=== PATIENT | female | born 1950 | race Asian ===

== ENCOUNTER 2019-01-18 06:06 | Observation (INO) | payer BC ==
[2019-01-08 13:49] VITALS: BMI 25.9
[~2019-01-18] VITALS: Ht 161.3 cm; Wt 67.1 kg
[2019-01-18] VITALS (21 sets, daily range): BP systolic 119–178; BP diastolic 59–87; PULSE 63–75; RESP 12–23; Ht 161.3 cm; Wt 67.1 kg
[~2019-01-18 06:06] MED LIST: ACETAMINOPHEN 500 MG TAB PO ONE; ATOR20TA38 PO; CEFAZOLIN 2 GM/50 ML (PMX) 50 ML IVPB ONE; DEXAMETHASONE 4 MG/ML 1 ML INJ IV ONE; LACTATED RINGER'S 1,000 ML IV SCH; LOSA100T15 PO
[2019-01-18] MEDS ORDERED: ACETAMINOPHEN 1000MG/100ML IV 100 ML IVPB ONE (06:57)
[2019-01-18] MEDS ORDERED: BACITRACIN 50000 UNITS INJ ONE (07:01)
[2019-01-18] MEDS ORDERED: POLYMYXIN B 500000 UNIT INJ ONE (07:07)
--- NOTE | 2019-01-18 07:08 | PREAC ---
Date/Time of Note Date/Time of Note DATE: 01/18/19 TIME: 07:06 Anesthesia Eval and Record Evaluation Time Pre-Procedure Interview DATE: 01/18/19 TIME: 07:06 Age 68 Sex female NPO: 8 hrs Preoperative diagnosis Right knee degenerative joint disease Planned procedure Right total knee replacement Past Medical History Past Medical History: Includes Cardio: HTN, Dyslipidemia Surgery & Anesthesia Issues No known issue Meds Anticoagulation: No Beta Charo within 24 hr: No Reason Beta Charo not given: Pt. not on B-Charo Reported Medications Gabapentin* (Gabapentin*) 100 Mg Capsule, 100 MG PO TID, #90 CAP 01/18/19 Meloxicam* (Meloxicam*) 7.5 Mg Tablet, 7.5 MG PO BID, #30 TAB 01/18/19 Hydrochlorothiazide* (Hydrochlorothiazide*) 25 Mg Tab, 25 MG PO DAILY, #30 TAB 01/18/19 Atorvastatin* (Atorvastatin*) 40 Mg Tablet, 40 MG PO QHS, #30 TAB 01/18/19 Losartan Potassium* (Losartan Potassium*) 100 Mg Tablet, 100 MG PO DAILY, TAB 01/18/19 Discontinued Reported Medications Atorvastatin Calcium* (Atorvastatin Calcium*) 20 Mg Tablet, 20 MG PO HS 01/11/13 Losartan Potassium* (Losartan Potassium*) 100 Mg Tablet, 100 MG PO HS 01/11/13 Current Medications Lactated Ringer's 1,000 ml @ 125 mls/hr Q8H IV ; Start 01/18/19 at 06:00; Stop 01/18/19 at 13:59 Acetaminophen 100 ml @ 400 mls/hr ONCE ONCE IVPB ; Start 01/18/19 at 06:57; Stop 01/18/19 at 07:11 Meds reviewed: Yes Allergies Uncoded Allergies: cassava (Allergy, Severe, hives,itching, 01/08/19) CHERRIES/EGG PLANTS/KUMQUAT (Allergy, Unknown, SEVER HIVES, 02/26/15) Allergies Reviewed: Yes Labs/Studies Labs Reviewed: Reviewed by anesthesiologist Blood Bank Test 01/17/19 10:28 Antibody Screen NEGATIVE Blood Type A POSITIVE test: N/A Pre-procedure Exam Airway: Adequate mouth opening Mallampati: Mallampati I Teeth: Normal Lung: Normal Heart: Normal ASA Physical Status ASA physical status: 3 Emergency: None Planned Anesthetic General/MAC: LMA Planned Pain Management Single shot nerve block, Parenteral pain med Pre-operative Attestations Prior to commencing anesthesia and surgery, the patient was re-evaluated, there was verification of: *The patient's identity *The results of appropriate recent lab work and preoperative vital signs *The above evaluation not changing prior to induction *Anesthetic plan, risk benefits, alternative and complications discussed with patient/family; questions answered; patient/family understands, accepts and wishes to proceed. DARWIN BHAKTA MD Jan 18, 2019 07:08
--- NOTE | 2019-01-18 07:30 | HPN ---
Date/Time of Note Date/Time of Note DATE: 01/18/19 TIME: 07:30 Interval H&P Admission Note Pt. seen H&P reviewed: No system changes KEIRA MAHMOOD Jan 18, 2019 07:30
[2019-01-18] MEDS ORDERED: ATOR40TA68 PO (07:38)
[2019-01-18] MEDS ORDERED: LOSA100T15 PO (07:38)
[2019-01-18] MEDS ORDERED: HYDR25TA6 PO (07:39)
[2019-01-18] MEDS ORDERED: GABA100C14 PO (07:39)
[2019-01-18] MEDS ORDERED: MELO7.5T38 PO (07:39)
[2019-01-18] MEDS ORDERED: LIDOCAINE 2% (SDV) 5 ML INJ ONE (08:28)
[2019-01-18] MEDS ORDERED: PROPOFOL 20 ML ONE (08:28)
[2019-01-18] MEDS ORDERED: CEFAZOLIN 1 GM INJ ONE (08:28)
[2019-01-18] MEDS ORDERED: ROPIVACAINE 0.5 % 30 ML VIAL ONE (08:28)
[2019-01-18] MEDS ORDERED: MEPERIDINE 100 MG INJ ONE (08:41)
[2019-01-18] MEDS: TRANEXAMIC ACID 1GM/100ML(PMX) 100 ML PRE-OP X1 IVPB ONE ×3 (08:50→08:55)
[2019-01-18] MEDS ORDERED: hydrALAzine 20 MG INJ ONE (08:52)
[2019-01-18] MEDS ORDERED: METOCLOPRAMIDE 10 MG INJ ONE (09:39)
[2019-01-18] MEDS ORDERED: ONDANSETRON 4 MG INJ ONE (09:39)
[2019-01-18] MEDS: TRANEXAMIC ACID 1GM/100ML(PMX) 100 ML INTRA-OP X1 IVPB ONE ×2 (10:05)
[2019-01-18] MEDS ORDERED: EPHEDrine 25 MG/5 ML SYG ONE (10:15)
--- NOTE | 2019-01-18 10:24 | SIPON ---
Date/Time of Note Date/Time of Note DATE: 01/18/19 TIME: 10:23 Operative Report Preoperative Diagnosis Right knee osteoarthritis Postoperative Diagnosis Same Operation/Procedure Performed Right total knee replacement Surgeon see signature line pediatric medical assistant Rich Anesthesia: spinal Estimated blood loss: 150 - 200 ml's Transfusion Required none Specimen Bone Grafts/Implants attune knee, size 3 femur, size 3 tibia, 7 mm polyethylene and 32 patella Complications none KEIRA MAHMOOD Jan 18, 2019 10:24
--- NOTE | 2019-01-18 10:27 | OPR ---
Date/Time of Note Date/Time of Note DATE: 01/18/19 TIME: 10:24 Operative Report Procedure Date: Jan 18, 2019 Preoperative Diagnosis Right knee osteoarthritis Postoperative Diagnosis Same Operation/Procedure Performed Right total knee replacement Surgeon see signature line Varitype Operator Fortunato Anesthesia Type: spinal Estimated Blood Loss: 150 - 200 ml's Transfusion none Specimen Bone Grafts/Implants Attune knee, 3 femur, 3 tibia, 32 patella and 7 mm of polyethylene Tubes/Drains None Complications none Pt Condition Post Procedure: stable Disposition: PACU Indications The patient is a 68-year-old female with advanced osteoarthritis of her right knee and valgus deformity Procedure Description The patient was placed supine on the operating room table. The right knee was prepped and draped in the usual manner. A valgus deformity was noted. An anterior incision was made. A mid vastus approach was used and the patella displaced laterally without everting it. There was advanced osteoarthritis of the knee with complete loss of cartilage and osteophyte formation. Using intramedullary alignment, the distal femoral cut was made in 5 degrees of valgus. Anterior posterior and chamfer cuts were made. A notch was cut in the distal femur to accommodate the posterior stabilized femoral component. The PCL was sacrificed. Remnants of the menisci were removed. The tibia was cut using external alignment of the patella cut using a freehand technique. Trials were inserted including a 3 femur, 3 tibia, 32 patella and 7 mm of polyethylene. This resulted in 0 to 120 degrees of motion with good balance and tracking. X- rays confirm proper alignment of the implants. Once satisfactory alignment was confirmed, final components were cemented in place. The knee was injected with pain cocktail and hemostasis confirmed with electrocautery and aqua mantis. The wound was closed in layers using #1 strata fix for deep fascia, 2-0 Vicryl for subcutaneous tissue and 3-0 Monocryl for the skin. Patient was transferred to the recovery room in stable condition KEIRA MAHMOOD Jan 18, 2019 10:27
[2019-01-18] MEDS ORDERED: NALOXONE (0.4 MG/ML) INJ IV PRN (10:30)
[2019-01-18] MEDS ORDERED: KETOROLAC 15 MG INJ IV PRN (10:30)
[2019-01-18] MEDS ORDERED: MAGNESIUM HYDROXIDE 30ML CUP PO PRN (10:30)
[2019-01-18] MEDS ORDERED: NACL 0.9% 3 ML SYG IV SCH (10:30)
[2019-01-18] MEDS ORDERED: oxyCODONE 5 MG TAB PO PRN (10:30)
[2019-01-18] MEDS ORDERED: HYDROmorphONE 1 MG/5 ML IV SYRINGE IV ONE (11:15)
[2019-01-18] MEDS: HYDROmorphONE 1 MG/5 ML IV SYRINGE IV PRN ×2 (11:25→11:54)
[2019-01-18] MEDS: LACTATED RINGER'S 1,000 ML IV SCH ×2 (11:26→22:57)
[2019-01-18] MEDS ORDERED: DIPHENHYDRAMINE 50 MG INJ IV PRN (11:30)
[2019-01-18] MEDS ORDERED: MEPERIDINE 25 MG INJ IV PRN (11:30)
[2019-01-18] MEDS ORDERED: hydrALAzine 20 MG INJ IV PRN (11:30)
[2019-01-18] MEDS ORDERED: HYDROmorphONE 1 MG/5 ML IV SYRINGE IV PRN ×2 (11:30)
[2019-01-18] MEDS ORDERED: OXYCODONE/ACETAMINOPHEN (5/325) TAB PO PRN ×2 (11:30)
[2019-01-18] MEDS ORDERED: EPHEDrine 25 MG/5 ML SYG IV PRN (11:30)
[2019-01-18] MEDS ORDERED: MIDAZOLAM 1 MG/ML 2 ML INJ IV PRN (11:30)
[2019-01-18] MEDS ORDERED: METOCLOPRAMIDE 10 MG INJ IV PRN (11:30)
[2019-01-18] MEDS ORDERED: ONDANSETRON 4 MG INJ IV PRN ×2 (11:30→15:00)
[2019-01-18] MEDS ORDERED: LABETALOL HCL 20MG INJ IV PRN (11:30)
[2019-01-18] MEDS ORDERED: FENTAnyl 50 MCG/ML VIAL IV PRN ×3 (11:30)
[2019-01-18] MEDS: CEFAZOLIN 2 GM/50 ML (PMX) 50 ML IVPB SCH ×3 (11:37→21:33)
--- NOTE | 2019-01-18 12:12 | PAC ---
Date/Time of Note Date/Time of Note DATE: 01/18/19 TIME: 12:11 Post-Anesthesia Notes Post-Anesthesia Note Last documented vital signs Vital Signs Date Temp Pulse Resp B/P (MAP) Pulse Ox O2 O2 Flow FiO2 Time Delivery Rate 01/18/19 66 18 131/59 98 Nasal 2.0 12:04 (83) Cannula 01/18/19 99.6 11:08 Activity: WNL Respiratory function: WNL Cardiovascular function: WNL Mental status: Baseline Pain reasonably controlled: Yes Hydration appropriate: Yes Nausea/Vomiting absent: Yes Comments BT: 98.8 DARWIN BHAKTA MD Jan 18, 2019 12:12
[2019-01-18] MEDS: GABAPENTIN 100 MG CAP PO SCH ×2 (13:51→21:33)
--- NOTE | 2019-01-18 17:13 | HP ---
Date/Time of Note Date/Time of Note DATE: 01/18/19 TIME: 17:13 Assessment/Plan VTE Prophylaxis Risk score (from Ns)>0 risk: 3 SCD applied (from Nsg): Yes Pharmacological prophylaxis: other Lines/Catheters IV Catheter Type (from Nrsg): Peripheral IV Assessment/Plan Assessment/Plan -Right knee osteoarthritis, status post right total knee replacement by Dr. Bermudez on 01/18/2019. Continue IV fluids and postoperative antibiotic. Continue Roxicodone and Toradol as needed for pain and Zofran as needed for nausea. PT, follow-up orthopedic surgery recommendations. -Hypertension, continue Cozaar and hydrochlorothiazide. -Hyperlipidemia, continue statin Further recommendations based on clinical course. Plan of care discussed with Dr. Arevalo.. HPI/ROS Admit Date/Time Admit Date/Time Jan 18, 2019 at 10:27 Hx of Present Illness Patient is 68-year-old very pleasant [place] female with history of hypertension, hyperlipidemia, and degenerative joint disease. Patient was evaluated by Dr. Bermudez for severe right knee osteoarthritis. Patient was brought to the hospital and underwent right total knee replacement. Postoperatively patient experiencing pain and patient is admitted for further evaluation and management. ROS 12 point review of systems negative except for what mentioned in HPI PMH/Family/Social Past Medical History Medical History: high cholesterol, hypertension Medications Current Medications Lactated Ringer's 1,000 ml @ 80 mls/hr [id number] IV Last administered on 01/18/19at 11:26; Admin Dose 80 MLS/HR; Start 01/18/19 at 10:27 IV Flush (NS 3 ml) 3 ml PER PROTOCOL IV ; Start 01/18/19 at 10:30 Oxycodone HCl (Roxicodone) 10 mg Q4H PRN PO .PAIN Last administered on 01/18/19at 13:51; Admin Dose 10 MG; Start 01/18/19 at 10:30 Oxycodone HCl (Roxicodone) 5 mg Q4H PRN PO .PAIN; Start 01/18/19 at 10:30 Ketorolac Tromethamine (Toradol) 15 mg Q6H PRN IV .PAIN; Start 01/18/19 at 10:30; Stop 01/20/19 at 10:29 Cefazolin Sodium/ Dextrose 50 ml @ 100 mls/hr Q8H IVPB Last administered on 01/18/19at 14:24; Admin Dose 100 MLS/HR; Start 01/18/19 at 14:00; Stop 01/19/19 at 06:29 Celecoxib (Celebrex) 100 mg BID PO ; Start 01/19/19 at 09:00 Gabapentin (Neurontin) 100 mg TID PO Last administered on 01/18/19at 13:51; Admin Dose 100 MG; Start 01/18/19 at 13:00 Pantoprazole (Protonix Tab) 40 mg DAILY@06 PO ; Start 01/20/19 at 06:00 Docusate Sodium (Colace) 200 mg BID PO ; Start 01/19/19 at 09:00; Stop 01/22/19 at 08:59 Magnesium Hydroxide (Milk Of Mag) 30 ml HS PRN PO .CONSTIPATION; Start 01/18/19 at 10:30 Naloxone HCl (Narcan) 0.2 mg Q2M PRN IV .RESP RATE; Start 01/18/19 at 10:30 Aspirin (Halfprin) 81 mg BID PO ; Start 01/19/19 at 09:00 Hydromorphone HCl (Dilaudid) 0.2 mg PACU PRN IV MILD PAIN 1-3; Start 01/18/19 at 11:30; Stop 01/18/19 at 18:00 Hydromorphone HCl (Dilaudid) 0.4 mg PACU PRN IV MOD PAIN 4-6 Last administered on 01/18/19at 11:54; Admin Dose 0.4 MG; Start 01/18/19 at 11:30; Stop 01/18/19 at 18:00 Hydromorphone HCl (Dilaudid) 0.6 mg PACU PRN IV SEVERE PAIN 7-10; Start 01/18/19 at 11:30; Stop 01/18/19 at 18:00 Fentanyl (Sublimaze) 25 mcg PACU ORDER PRN IV MILD PAIN 1-3; Start 01/18/19 at 11:30; Stop 01/18/19 at 18:00 Fentanyl (Sublimaze) 50 mcg PACU ORDER PRN IV MOD PAIN 4-6; Start 01/18/19 at 11:30; Stop 01/18/19 at 18:00 Fentanyl (Sublimaze) 75 mcg PACU ORDER PRN IV SEVERE PAIN 7-10; Start 01/18/19 at 11:30; Stop 01/18/19 at 18:00 Oxycodone/ Acetaminophen (Percocet (5/ 325)) 1 tab PACU ORDER PRN PO .PAIN 1-5; Start 01/18/19 at 11:30; Stop 01/18/19 at 18:00 Oxycodone/ Acetaminophen (Percocet (5/ 325)) 2 tab PACU ORDER PRN PO .PAIN 6-10; Start 01/18/19 at 11:30; Stop 01/18/19 at 18:00 Ondansetron HCl (Zofran Inj) 4 mg PACU ORDER PRN IV NAUSEA/VOMITING; Start 01/18/19 at 11:30; Stop 01/18/19 at 18:00 Metoclopramide HCl (Reglan) 10 mg PACU ORDER PRN IV NAUSEA/VOMITING; Start 01/18/19 at 11:30; Stop 01/18/19 at 18:00 Labetalol HCl (Labetalol) 5 mg PACU ORDER PRN IV HIGH BLOOD PRESSURE; Start 01/18/19 at 11:30; Stop 01/18/19 at 18:00 Hydralazine HCl (Apresoline) 5 mg PACU ORDER PRN IV HIGH BLOOD PRESSURE; Start 01/18/19 at 11:30; Stop 01/18/19 at 18:00 Ephedrine Sulfate 5 mg PACU ORDER PRN IV BLOOD PRESSURE SUPPORT; Start 01/18/19 at 11:30; Stop 01/18/19 at 18:00 Meperidine HCl (Demerol) 25 mg PACU ORDER PRN IV .RIGORS; Start 01/18/19 at 11:30; Stop 01/18/19 at 18:00 Diphenhydramine HCl (Benadryl) 25 mg PACU ORDER PRN IV .PRURITUS; Start 01/18/19 at 11:30; Stop 01/18/19 at 18:00 Midazolam HCl (Versed) 0.5 mg PACU ORDER PRN IV .ANXIETY; Start 01/18/19 at 11:30; Stop 01/18/19 at 18:00 Ondansetron HCl (Zofran Inj) 4 mg Q4H PRN IV NAUSEA/VOMITING Last administered on 01/18/19at 15:27; Admin Dose 4 MG; Start 01/18/19 at 15:00 Uncoded Allergies: cassava (Allergy, Severe, hives,itching, 01/08/19) CHERRIES/EGG PLANTS/KUMQUAT (Allergy, Unknown, SEVER HIVES, 02/26/15) Past Surgical History Past Surgical Hx: other (Status post cholecystectomy, status post hysterectomy status post partial thyroidectomy status post breast reduction surgery status post right foot tibial tendon rupture surgery) Family History Significant Family History: no pertinent family hx Social History Alcohol Use: none Smoking Status: Never smoker Exam/Review of Systems Vital Signs Vitals Vital Signs Date Temp Pulse Resp B/P (MAP) Pulse Ox O2 O2 Flow FiO2 Time Delivery Rate 01/18/19 68 16 149/68 98 Nasal 16:00 (95) Cannula 01/18/19 2.0 14:30 01/18/19 98.7 13:11 Exam Constitutional: alert, oriented Head: normocephalic Neck: supple Respiratory: clear to auscultation Cardiovascular: nl pulses Gastrointestinal: soft, non-tender Musculoskeletal: nl extremities to inspection, other (Status post right total knee replacement) Extremities: normal pulses Neurological: nl mental status Skin: nl FOX Soler Jan 18, 2019 17:13
[2019-01-19 01:00] VITALS: BP 141/73; PULSE 60; RESP 17
[2019-01-19] MEDS: LACTATED RINGER'S 1,000 ML IV SCH (01:04)
[2019-01-19] MEDS: CEFAZOLIN 2 GM/50 ML (PMX) 50 ML IVPB SCH (06:16)
[2019-01-19 08:26] VITALS: BP 144/90; PULSE 74; RESP 17; RESP 74
[2019-01-19] MEDS: GABAPENTIN 100 MG CAP PO SCH ×2 (08:44→13:00)
[2019-01-19] MEDS ORDERED: DOCUSATE SODIUM 100 MG CAP PO SCH (09:00)
[2019-01-19] MEDS ORDERED: HYDROCHLOROTHIAZIDE 25 MG TAB PO SCH (09:00)
[2019-01-19] MEDS ORDERED: ASPIRIN (EC) 81 MG TAB PO SCH (09:00)
[2019-01-19] MEDS ORDERED: CELECOXIB 100 MG CAP PO SCH (09:00)
[2019-01-19] MEDS ORDERED: LOSARTAN 50 MG TAB PO SCH (09:00)
[2019-01-19] MEDS ORDERED: ONDANSETRON 4 MG INJ IV PRN (10:30)
[2019-01-19] MEDS: oxyCODONE 5 MG TAB PO PRN ×2 (13:16→17:27)
[2019-01-19] MEDS ORDERED: ATORVASTATIN 40 MG TAB PO SCH (21:00)
[2019-01-20] MEDS ORDERED: PANTOPRAZOLE (EC) 40 MG TAB PO SCH (06:00)
== END 2019-01-19 15:30 | disposition home health service (06) ==
LOC: SDS 06:06 → REC 10:27 → MS1 12:29
PROVIDERS: ADMIT Orthopaedic Surgery; ATTEND Orthopaedic Surgery
DX: M17.11 Unilateral primary osteoarthritis, right knee (principal); I10 Essential (primary) hypertension; E78.5 Hyperlipidemia, unspecified; Z79.82 Long term (current) use of aspirin
CPT/HCPCS: 27447; 73560; 80048; 85025; 86850; 86900; 86901; 87081; 88304; 88311; 97116; 97161; 97530; C1776; G0378; J0131; J0171; J0360; J0690; J1100; J1170; J1885; J2175; J2405; J2765; J2795; J7120